=== PATIENT | female | born 1940 | race Caucasian/White ===

== ENCOUNTER → 2017-08-15 | Outpatient (CLI) | payer MEDICARE, OTHER ==
[2017-08-15 22:09] LABS: Stool Occult Bld Immuno 1 Negative (NEGATIVE)
== END | disposition home or self-care (01) ==
LOC: LAB EV 08:30
PROVIDERS: Nurse Practitioner
DX: Z12.11 Encounter for screening for malignant neoplasm of colon (principal)
CPT/HCPCS: G0328

== ENCOUNTER 2021-12-24 06:59 | Day surgery (SDC) | payer MEDICARE, OTHER ==
[~2021-12-24] VITALS: Ht 167.6 cm; Wt 86.0 kg
[~2021-12-24 06:59] MED LIST: EUTHYROX50 MC1 PO
[2021-12-24] MEDS ORDERED: LISI20 PO (07:37)
[2021-12-24] MEDS ORDERED: LISINOPRIL-HCT1 EACH PO (07:38)
[2021-12-24] MEDS ORDERED: METF500 PO (07:40)
[2021-12-24] MEDS ORDERED: GLIPIZIDE-METF1 EACH PO (08:05)
[2021-12-24] MEDS ORDERED: Aspir 8181 MG PO (10:46)
[2021-12-24] MEDS ORDERED: XARELTO2.5 M1 PO (10:46)
[2021-12-24] MEDS ORDERED: CLOP75 PO (10:47)
--- NOTE | 2021-12-24 11:04 | NUR ---
DR LEUNG IN ROOM DISCUSSING PLAN OF CARE.
--- NOTE | 2021-12-24 11:30 | NUR ---
RIGHT GROIN SITE SOFT NON-TENDER WITH NO HEMATOMA, NO PULSATILE BLEEDING AND INTACT DRESSING. RIGHT PT FAINT DOPPLER PULSE NOTED. FAMILY MEMBERS IN ROOM WITH PT.
--- NOTE | 2021-12-24 13:45 | NUR ---
PT ASSISTED TO BEDSIDE COMMODE AND BACK. PT ASSISTED WITH DRESSING SELF. TOLERATES WELL. VSS. PT R FEMORAL SITE REMAINS CLEAR. NO BLEEDING OR HEMATOMA. PT AND S/O VERBALIZE UNDERSTANDING WRITTEN INSTRUCTIONS WELL. PT DC TO HOME VIA S/O BY NASH.
== END 2021-12-24 13:45 | disposition home or self-care (01) ==
LOC: MHTC 06:59
DX: I70.221 Atherosclerosis of native arteries of extremities with rest pain, right leg (principal); I70.213 Atherosclerosis of native arteries of extremities with intermittent claudication, bilateral legs; I10 Essential (primary) hypertension; Z88.0 Allergy status to penicillin
CPT/HCPCS: 37224; 37228; 37232; 75625; 75716; 75774; 76937; 85347; 99152; 99153; A9270; C1725; C1760; C1769; C1887; C1894; C2623; J1644; J2250; J3010; J7030; Q9967

== ENCOUNTER → 2023-03-08 | Outpatient (CLI) | payer MEDICARE, OTHER ==
[~2023-03-08] MED LIST changes: +Aspir 8181 MG PO; +CLOP75 PO; +GLIPIZIDE-METF1 EACH PO; +LISI20 PO; +LISINOPRIL-HCT1 EACH PO; +METF500 PO; +XARELTO2.5 M1 PO
== END ==
LOC: LAB SHORT 10:52 → LAB 10:52 → LAB SHORT 03-09 10:51
DX: L08.9 Local infection of the skin and subcutaneous tissue, unspecified (principal); Z48.02 Encounter for removal of sutures
CPT/HCPCS: 87070; 87205